=== PATIENT | female | born 1950 | race American Indian/Alaskan Native ===

== ENCOUNTER → 2018-09-27 12:08 | Outpatient (CLI) | payer MEDICARE, MEDICAID, SELFPAY ==
[2018-09-27 13:25] LABS: Alanine Aminotransferase 38 IU/L (9-52); Albumin 3.8 g/dL (3.5-5.0); Albumin Globulin Ratio 0.9 (1.0-2.8); Alkaline Phosphatase 109 U/L (38-126); Aspartate Aminotransferase 39 IU/L (14-36); BUN Creatinine Ratio 13.3 (6-22); Bilirubin Total 0.8 mg/dL (0.2-1.3); Blood Urea Nitrogen 8 mg/dL (7-17); Calcium 8.6 mg/dL (8.4-10.2); Carbon Dioxide 24 mmol/L (22-32); Chloride 107 mmol/L (98-107); Estimated Glomerular Filt Rate > 60.0 mL/min (>60); Globulin 4.3 g/dL (1.7-4.1); Glucose 121 mg/dL (80-110); HEMOLYSIS 50 (0-50); Potassium 4.5 mmol/L (3.4-5.1); Sodium 139 mmol/L (137-145); Total Protein 8.1 g/dL (6.3-8.2)
== END ==
PROVIDERS: PCP Internal Medicine; Visit Provider Internal Medicine
DX: I10 Essential (primary) hypertension (principal)
CPT/HCPCS: 36415; 80053

== ENCOUNTER → 2020-08-13 16:24 | Outpatient (CLI) | payer MEDICARE, MEDICAID, SELFPAY ==
[2020-08-13 17:35] LABS: Alanine Aminotransferase 19 IU/L (<35); Albumin 3.6 g/dL (3.5-5.0); Albumin Globulin Ratio 0.8 (1.0-2.8); Alkaline Phosphatase 112 U/L (38-126); Aspartate Aminotransferase 38 IU/L (14-36); Bilirubin Total 0.8 mg/dL (0.2-1.3); Blood Urea Nitrogen 7 mg/dL (7-17); Calcium 8.7 mg/dL (8.4-10.2); Carbon Dioxide 27 mmol/L (22-32); Chloride 110 mmol/L (98-107); Estimated Glomerular Filt Rate > 60.0 mL/min (>60); Globulin 4.7 g/dL (1.7-4.1); Glucose 100 mg/dL (80-110); HEMOLYSIS < 15 (0-50); Potassium 4.3 mmol/L (3.4-5.1); Sodium 143 mmol/L (137-145); Total Protein 8.3 g/dL (6.3-8.2)
== END ==
PROVIDERS: PCP Internal Medicine; Referring Provider Internal Medicine; Visit Provider Internal Medicine
DX: G89.4 Chronic pain syndrome (principal); M54.2 Cervicalgia; M54.9 Dorsalgia, unspecified
CPT/HCPCS: 36415; 80053

== ENCOUNTER 2022-01-07 21:38 | Emergency (ER) | payer MEDICARE, MEDICAID, SELFPAY ==
[2022-01-07] VITALS (8 sets, daily range): BP systolic 123–159; BP diastolic 56–68; PULSE 72–90; RESP 10–18; TEMP 36.6; O2SAT 96–100
--- NOTE | 2022-01-07 22:37 | DI.RAD.S_ITS ---
PROCEDURE: XR CHEST 1V INDICATIONS: fall TECHNIQUE: One view of the chest was acquired. COMPARISON: CR, CHEST 2 VIEW, 11/30/2008, 10:47. FINDINGS: Surgical changes and devices: None. Lungs and pleura: Lungs are clear. No pleural effusions or pneumothorax. Mediastinum: Mediastinal contours appear normal. Heart size is normal. Bones and chest wall: No displaced fractures identified. No suspicious bony lesions. Overlying soft tissues appear unremarkable. IMPRESSION: 1. No acute cardiopulmonary disease. Dictated by: Rajiv Luke M.D. on 01/08/2022 at 0:15 Approved by: Rajiv Luke M.D. on 01/08/2022 at 0:20
--- NOTE | 2022-01-07 22:37 | DI.RAD.S_ITS ---
PROCEDURE: XR PELVIS 1-2V INDICATIONS: fall TECHNIQUE: Single view of the pelvis acquired. COMPARISON: None. FINDINGS: Bones: No definite fractures or dislocations. There is a curvilinear lucency projecting over the right superior pubic ramus likely reflecting artifact from overlying bowel. No suspicious bony lesions. Soft tissues: Visualized bowel gas pattern is normal. No suspicious soft tissue calcifications. IMPRESSION: 1. No definite fracture or dislocation. Dictated by: Rajiv Luke M.D. on 01/08/2022 at 0:20 Approved by: Rajiv Luke M.D. on 01/08/2022 at 0:21
--- NOTE | 2022-01-07 22:37 | DI.CT.S_ITS ---
PROCEDURE: CT HEAD/BRAIN WO CON INDICATIONS: ? fall, hit head TECHNIQUE: Noncontrast 4.5 mm thick angled axial sections acquired from the foramen magnum to the vertex, with coronal and sagittal reformats. For radiation dose reduction, the following was used: automated exposure control, adjustment of mA and/or kV according to patient size. COMPARISON: None. FINDINGS: Image quality: Excellent. CSF spaces: Basal cisterns are patent. No extra-axial fluid collections. There is mild cerebral volume loss, with resultant ventricular and sulcal prominence. Brain: No intracranial hemorrhage, mass, or mass effect. There are subcortical, periventricular and deep white matter hypodensities consistent with mild chronic small vessel ischemic changes. There are calcifications within the right basal ganglia. The estes-white matter junction appears preserved. There is intracranial internal carotid artery atherosclerosis. Skull and face: Calvarium and visualized facial bones appear intact, without suspicious lesions. Sinuses: Visualized sinuses and mastoids are clear. IMPRESSION: 1. No acute intracranial abnormality. 2. Mild chronic white matter small vessel ischemic changes and cerebral volume loss. Dictated by: Rajiv Luke M.D. on 01/07/2022 at 23:26 Approved by: Rajiv Luke M.D. on 01/07/2022 at 23:27
[2022-01-07 22:49] LABS: Add Manual Diff / Slide Review NO; Basophils Absolute Auto 0 /uL (0-100); Basophils Percent Auto 0.6 % (0-2); Eosinophils Absolute Auto 100 /uL (0-450); Eosinophils Percent Auto 2.3 % (2-4); Hematocrit 22.9 % (36-46); Hemoglobin 7.4 g/dL (12.0-16.0); Lymphocytes Absolute Auto 1100 /uL (1100-4500); Lymphocytes Percent Auto 38.1 % (25-40); Mean Corpuscular HGB Conc 32.3 % (30-36); Mean Corpuscular Volume 83.6 fL (80-100); Monocytes Absolute Auto 200 /uL (0-900); Monocytes Percent Auto 6.2 % (3-14); Neutrophils Absolute Auto 1500 /uL (1500-7000); Neutrophils Percent Auto 52.8 % (50-75); Platelet Count 63 X10^3/uL (150-400); Red Blood Cell Count 2.74 X10^6/uL (4.0-5.2); Red Cell Distribution Width 16.1 % (11.6-14.8); White Blood Cell Count 2.8 X10^3/uL (4.5-11.0)
[2022-01-07 22:54] LABS: Alanine Aminotransferase 16 IU/L (<35); Albumin 3.3 g/dL (3.5-5.0); Albumin Globulin Ratio 0.7 (1.0-2.8); Alkaline Phosphatase 96 U/L (38-126); Aspartate Aminotransferase 27 IU/L (14-36); BUN Creatinine Ratio 9.7 (6-22); Bilirubin Total 0.6 mg/dL (0.2-1.3); Blood Urea Nitrogen 10 mg/dL (7-17); Calcium 7.9 mg/dL (8.4-10.2); Carbon Dioxide 22 mmol/L (22-32); Chloride 113 mmol/L (98-107); Estimated Glomerular Filt Rate 57 mL/min (>60); Globulin 4.6 g/dL (1.7-4.1); Glucose 123 mg/dL (80-110); HEMOLYSIS < 15 (0-50); Lipase 155 U/L (23-300); Potassium 4.1 mmol/L (3.4-5.1); Sodium 143 mmol/L (137-145); Total Protein 7.9 g/dL (6.3-8.2)
[2022-01-08] VITALS: BP 148/65; PULSE 72; RESP 14; O2SAT 99
[2022-01-08 00:30] VITALS: BP 147/67; PULSE 72; RESP 13; O2SAT 99
[2022-01-08 01:00] VITALS: BP 160/68; PULSE 74; RESP 10; O2SAT 99
--- NOTE | 2022-01-08 01:12 | ED_ITS ---
HPI - Fall General Chief Complaint: Fall Stated Complaint: fall Time Seen by Provider: 01/07/22 22:37 Source: patient and EMS Mode of arrival: EMS Limitations: no limitations History of Present Illness HPI Narrative: This is a 71-year-old female with history of chronic back pain, hypertension, GERD, asthma, hepatitis-C and opioid dependence. Patient comes from a [facility]. She states that she slipped out of her chair unsure if she hit her head staff thought she might have there was a red spot on her forehead. Patient complains of some right upper quadrant pain. She denies any back or neck pain. She denies any numbness, tingling weakness. No nausea or vomiting, no other GI or urinary symptoms. Related Data Previous Rx's Medication Instructions Recorded Disabled Parking Permit #1 ea 12/05/21 albuterol sulfate 90 mcg/actuation 2 puff inhalation Q4HP PRN 12/30/21 aerosol inhaler (Proventil HFA) shortness of breath or wheezing ##8.5 fluticasone propionate 110 2 puff inhalation BID #12 grams 12/30/21 mcg/actuation HFA aerosol inhaler (Flovent HFA) fluticasone propionate 50 1 spray intranasal DAILY #15.8 mL 12/30/21 mcg/actuation nasal spray,suspension (Flonase Allergy Relief) oxycodone-acetaminophen 5 mg-325 See Rx Instructions PO Q4-6H PRN 12/30/21 mg tablet pain #120 tabs salmeterol 50 mcg/dose blister 1 inh inhalation BID #50 mcg 12/30/21 powder for inhalation (Serevent Diskus) Allergies Allergy/AdvReac Type Severity Reaction Status Date / Time codeine [CODEINE] Allergy Mild HIVES Verified 01/08/22 11:39 hydrocodone [HYDROCODONE] Allergy Mild HIVES/VICOD Verified 01/08/22 11:39 IN morphine [MORPHINE] Allergy Mild CRAMPS Verified 01/08/22 11:39 NSAIDS (Non-Steroidal Allergy Mild HIVES Verified 01/08/22 11:39 Anti-Inflamma [NSAIDS (NON-STEROIDAL ANTI-INFLAMMA] Review of Systems Review of Systems ROS Unobtainable: All systems reviewed & are unremarkable except as noted in HPI and below Patient History Medical History (Updated 01/08/22 @ 11:58 by Sammy Jeronimo MD) Back pain (11/14/10) Chronic pain syndrome Essential hypertension (11/14/10) Gastroesophageal reflux disease without esophagitis (11/14/10) HCV antibody positive (11/14/10) Mild intermittent asthma without complication (01/26/14) Neck pain (12/12/10) Opioid dependence Pancytopenia Surgical History Anesthesia History of knee replacement History of spinal fusion Status post cholecystectomy Social History marital status: Smoking Status: Current some day smoker Smokeless tobacco user: other (Cigarettes) quit status: has quit before second hand exposure: Yes alcohol intake: never substance use type: does not use Smoking Status: Current some day smoker Substance Use Type: does not use Exam Narrative Exam Narrative: GEN: Patient appears in mild distress. HEAD: No evidence of trauma, no raccoon/Womack sign. NECK: Nontender, painless range of motion, trachea midline Negative Nexus criteria, there is no midline line tenderness, distracting injury, altered mental status, neuro deficit, recent EtOH. EYES: PERRLA, EOMI ENT: External inspection normal, trachea is midline, TM's are normal no hemotypanum, Nares are clear, no septal hematoma, no dental or oral injury, airway is normal and with normal occlusion, No bony tenderness RESP: Chest is nontender and has symmetric movement, no ecchymosis, breath sounds are normal no crackles, wheezes or rales CVS: Heart sounds are normal, no murmur noted, No JVD. ABG/GI: Patient is tender particularly right upper quadrant, soft, normal bowel sounds, no distention, no organomegaly, pelvic rock is negative NEURO: Oriented AOx3, neuro is grossly intact, sensation and motor is normal all 4 extremities moving, cranial nerves II through XII are intact, GCS is 14 PSYCH: Normal mood and affect SKIN: Intact, warm and dry, no crepitus and without decubitus BACK: No CVA tenderness, no vertebral tenderness, no step-off's, no crepitus EXT: Atraumatic, hips are nontender, no pedal edema, normal color and temperature, normal range of motion of extremities with normal tendon exam, 2+ pulses in all four extremities SKIN: Patient does have some bruising on upper and lower extremities. Initial Vital Signs Initial Vital Signs: Vital Signs Temperature 97.9 F 01/07/22 21:40 Pulse Rate 88 01/07/22 21:40 Respiratory Rate 18 01/07/22 21:40 Blood Pressure 123/56 L 01/07/22 21:40 Pulse Oximetry 99 01/07/22 21:40 Oxygen Delivery Method 01/07/22 21:40 Scores GCS Reyna coma scale eye opening: Spontaneous Reyna coma scale verbal response: Confused Reyna coma scale motor response: Obey commands Reyna coma scale total score: 14 Course Orders Ordered: Discontinued Medications Oxycodone/Acetaminophen (Oxycodone/Acetaminophen 5/325 Tablet) 1 tab PO NOW ONE Stop: 01/08/22 01:17 Last Admin: 01/08/22 02:02 Dose: 1 tab Documented By: DEREK Vital Signs Vital signs: Vital Signs - 8 hr 01/07/22 21:40 01/07/22 21:42 01/07/22 21:43 Temperature 97.9 F Pulse Rate 88 90 Respiratory Rate 18 Blood Pressure 123/56 L 123/56 L Pulse Oximetry 99 96 Oxygen Delivery Method Room Air 01/07/22 22:00 01/07/22 22:30 01/07/22 23:04 Temperature Pulse Rate 81 77 73 Respiratory Rate 12 10 L 13 Blood Pressure Pulse Oximetry 96 98 100 Oxygen Delivery Method 01/07/22 23:05 01/07/22 23:05 01/07/22 23:30 Temperature Pulse Rate 74 Respiratory Rate 11 L Blood Pressure 159/68 H 142/64 H Pulse Oximetry 98 Oxygen Delivery Method 01/07/22 23:30 01/08/22 00:00 01/08/22 00:00 Temperature Pulse Rate 72 72 Respiratory Rate 13 14 Blood Pressure 148/65 H Pulse Oximetry 99 99 Oxygen Delivery Method 01/08/22 00:30 01/08/22 00:30 01/08/22 01:00 Temperature Pulse Rate 72 Respiratory Rate 13 Blood Pressure 147/67 H 160/68 H Pulse Oximetry 99 Oxygen Delivery Method 01/08/22 01:00 Temperature Pulse Rate 74 Respiratory Rate 10 L Blood Pressure Pulse Oximetry 99 Oxygen Delivery Method MDM - Fall Lab Data Result diagrams: 01/07/22 22:07 01/07/22 22:07 Labs: Lab Results 01/07/22 01/07/22 Range/Units 22:07 22:07 WBC 2.8 L (4.5-11.0) X10^3/uL RBC 2.74 L (4.0-5.2) X10^6/uL Hgb 7.4 L (12.0-16.0) g/dL Hct 22.9 L (36-46) % MCV 83.6 (80-100) fL MCH 27.0 (26-34) PG MCHC 32.3 (30-36) % RDW 16.1 H (11.6-14.8) % Plt Count 63 L (150-400) X10^3/uL Neut % (Auto) 52.8 (50-75) % Lymph % (Auto) 38.1 (25-40) % Rooks % (Auto) 6.2 (3-14) % Eos % (Auto) 2.3 (2-4) % Baso % (Auto) 0.6 (0-2) % Neut # (Auto) 1500 (0064-6779) /uL Lymph # (Auto) 1100 (0667-0426) /uL Rooks # (Auto) 200 (0-900) /uL Eos # (Auto) 100 (0-450) /uL Baso # (Auto) 0 (0-100) /uL Sodium 143 (137-145) mmol/L Potassium 4.1 (3.4-5.1) mmol/L Chloride 113 H (98-107) mmol/L Carbon Dioxide 22 (22-32) mmol/L BUN 10 (7-17) mg/dL Creatinine 1.03 (0.52-1.04) mg/dL Estimated GFR 57 L (>60) mL/min BUN/Creatinine Ratio 9.7 (6-22) Glucose 123 H (80-110) mg/dL Calcium 7.9 L (8.4-10.2) mg/dL Total Bilirubin 0.6 (0.2-1.3) mg/dL AST 27 (14-36) IU/L ALT 16 (<35) IU/L Alkaline Phosphatase 96 (38-126) U/L Total Protein 7.9 (6.3-8.2) g/dL Albumin 3.3 L (3.5-5.0) g/dL Globulin 4.6 H (1.7-4.1) g/dL Albumin/Globulin Ratio 0.7 L (1.0-2.8) Lipase 155 (23-300) U/L Imaging Data CT scan - head: Radiologist's Impression: [address] [id number] Scan ReportSigned Patient: Ivett JoynMR#: [id number]: 9Acct:[id number]/Sex: 71 / FDate of Service: 01/07/22Loc: EDAccession Number: [id number]? ? Procedure: CT head/brain wo con Ordering Provider: Lila Anderson D.O. PROCEDURE:? CT HEAD/BRAIN WO CON ? INDICATIONS:? ? fall, hit head ? TECHNIQUE:? Noncontrast 4.5 mm thick angled axial sections acquired from the foramen magnum to the vertex, with coronal and sagittal reformats.? For radiation dose reduction, the following was used:? automated exposure control, adjustment of mA and/or kV according to patient size.? ? COMPARISON:? None. ? FINDINGS:? Image quality:? Excellent.? ? CSF spaces:? Basal cisterns are patent.? No extra-axial fluid collections.? There is mild cerebral volume loss, with resultant ventricular and sulcal prominence.? ? Brain:? No intracranial hemorrhage, mass, or mass effect.? There are subcortical, periventricular and deep white matter hypodensities consistent with mild chronic small vessel ischemic changes.? There are calcifications within the right basal ganglia.? The estes-white matter junction appears preserved.? There is intracranial internal carotid artery atherosclerosis.? ? Skull and face:? Calvarium and visualized facial bones appear intact, without suspicious lesions.? ? Sinuses:? Visualized sinuses and mastoids are clear.? ? IMPRESSION:? ? 1. No acute intracranial abnormality. ? 2. Mild chronic white matter small vessel ischemic changes and cerebral volume loss.? ? ? Dictated by: Rajiv Luke M.D. on 01/07/2022 at 23:26? ?? Approved by: Rajiv Luke M.D. on 01/07/2022 at 23:27??? Chest x-ray: Radiologist's Impression: Close Pelvis X-Ray (Signed) Rajiv Luke - 01/07/[address] (Signed) Rajiv Luke - 01/07/22 Chest X-Ray (Signed) Rajiv Luke - 01/07/22 Launch?Image [address] [address] XRay Report Signed Patient: Linnea Joy MR#: [id number] : 1950 Acct:[id number] Age/Sex: 71 / F Date of Service: 01/07/22 Loc: ED Accession Number: [id number] ?? Procedure: XR chest 1V Ordering Provider: Lila Anderson D.O. PROCEDURE:? XR CHEST 1V ? INDICATIONS:? fall ? TECHNIQUE:? One view of the chest was acquired.? ? COMPARISON:? CR, CHEST 2 VIEW, 11/30/2008, 10:47. ? FINDINGS:? ? Surgical changes and devices:? None.? ? Lungs and pleura:? Lungs are clear.? No pleural effusions or pneumothorax.? ? Mediastinum:? Mediastinal contours appear normal.? Heart size is normal.? ? Bones and chest wall:? No displaced fractures identified.? No suspicious bony lesions.? Overlying soft tissues appear unremarkable.? ? IMPRESSION:? ? 1.? No acute cardiopulmonary disease. ? ? ? Dictated by: Rajiv Luke M.D. on 01/08/2022 at 0:15 ? ? Approved by: Rajiv Luke M.D. on 01/08/2022 at 0:20? pelvic xray: Radiologist's Impression: [address] [address] XRay Report Signed Patient: Linnea Joy MR#: [id number] : 1950 Acct:[id number] Age/Sex: 71 / F Date of Service: 01/07/22 Loc: ED Accession Number: [id number] ?? Procedure: XR pelvis 1-2V Ordering Provider: Lila Anderson D.O. PROCEDURE:? XR PELVIS 1-2V ? INDICATIONS:? fall ? TECHNIQUE:? Single view of the pelvis acquired.? ? COMPARISON:? None. ? FINDINGS:? ? Bones:? No definite fractures or dislocations.? There is a curvilinear lucency projecting over the right superior pubic ramus likely reflecting artifact from overlying bowel.? No suspicious bony lesions.? ? Soft tissues:? Visualized bowel gas pattern is normal.? No suspicious soft tissue calcifications.? ? IMPRESSION:? ? 1. No definite fracture or dislocation. ? ? Dictated by: Rajiv Luke M.D. on 01/08/2022 at 0:20 ? ? Approved by: Rajiv Luke M.D. on 01/08/2022 at 0:21?? CT scan - abdomen/pelvis: Radiologist's Impression: Suad Sharma??51??F??08/02/1970 ? Allergy/Adv: codeine Close Lumbar Spine X-Ray (Signed) Marly,Rajiv - 01/08/[address] (Signed) Marly,Rajiv - 01/08/22 Knee X-Ray (Signed) Marly,Rajiv - 01/07/22 Ankle X-Ray (Signed) Marly,Rajiv - 01/07/22 Launch?[place] [address] XRay Report Signed Patient: Suad Sharma MR#: [id number] : 08/02/1970 Acct:[id number] Age/Sex: 51 / F Date of Service: 01/07/22 Loc: ED Accession Number: [id number] ?? Procedure: XR ankle LT min 3V Ordering Provider: Lila Anderson D.O. PROCEDURE:? XR ANKLE LT MIN 3V ? INDICATIONS:? fall right ankle pain ? TECHNIQUE:? 3 views of the ankle were acquired.? ? COMPARISON:? None. ? FINDINGS:? ? Bones:? No fractures or dislocations.? Ankle mortise is normally aligned.? No s uspicious bony lesions.? ? Soft tissues:? No tibiotalar joint effusion.? Achilles tendon appears normal.? ? ? IMPRESSION:? ? 1. No fracture or dislocation. ? Dictated by: Rajiv Luke M.D. on 01/08/2022 at 0:44 ? ? Approved by: Rajiv Luke M.D. on 01/08/2022 at 0:57? ECG Data Attestation: I personally reviewed and interpreted this ECG as follows: Interpretation: Sinus rhythm rate 85 NE 184 QRS 84 and QTC 447. No acute ST changes appreciated. MDM Narrative Medical decision making narrative: This is a 71-year-old female with unwitnessed ground level fall, head CT is negative, patient's chest and pelvis are negative. On exam patient does have some right upper quadrant tenderness and is noted to be pancytopenic. She is not tachycardic or hypotensive but do not have any priors for comparison for her hemoglobin or other labs so CT abdomen pelvis was obtained as she is higher risk for bleeding with her thrombocytopenia. Patient states that she would not want a blood transfusion for latter-day purposes even if it meant she would . Patient states she has an appointment today with Dr. Jeronimo her primary care provider she would like to return to [facility] assisted [facility]. Patient I discussed observation she would rather return back to her facility. I did speak with Dr. Morocho who is on-call for Dr. Jeronimo and he will let him regarding today's findings. Patient boarding overnight in the ER while awaiting ride expected to come at 6:00 a.m. Discharge Plan Departure Patient Disposition: Home Clinical Impression: Anemia, Abdominal pain Fall Qualifiers: Encounter type: initial encounter Qualified Code(s): W19.XXXA - Unspecified fall, initial encounter Instructions: DI for Pancytopenia Activity Restrictions/Additional Instructions: Your labs show pancytopenia or low white blood cell count, hemoglobin and elkin telets. As discussed you would not wish for a blood transfusion if you needed so this is deferred. I spoke with your on-call providers, please follow-up with Dr. Jeronimo at your appointment later today to review these. You may take your home medications including her home pain medication as prescribed. Please return for new or worsening symptoms, severe headaches, passing out, new chest pain, shortness of breath, new or worsening abdominal back or flank pain or other new or concerning changes. Prescriptions: No Action (DME) Disabled Parking Permit See Rx Instructions .Route .MEDSUPPLY Qty: 1 0RF Rx Instructions: Patient unable to walk 200 feet without stopping to rest and must walk with assistance. oxycodone-acetaminophen 5-325 mg tablet See Rx Instructions PO Q4-6H PRN (Reason: pain) Qty: 120 0RF Rx Instructions: 1-2 TABS PO Q4-6H PRN; albuterol sulfate [Proventil HFA] 90 mcg/actuation HFA aerosol inhaler 2 puff inhalation Q4HP PRN (Reason: shortness of breath or wheezing) Qty: 8.5 11RF fluticasone propionate [Flonase Allergy Relief] 50 mcg/actuation spray,suspension 1 spray intranasal DAILY Qty: 15.8 3RF Rx Instructions: administer into each nostril Flovent HFA 110 mcg/actuation HFA aerosol inhaler 2 puff inhalation BID Qty: 12 3RF Serevent Diskus 50 mcg/dose blister with device 1 inh inhalation BID Qty: 50 11RF Referrals: Sammy Jeronimo MD [Primary Care Provider] - Visit Report Forms: Patient Portal/API
--- NOTE | 2022-01-08 01:16 | DI.CT.S_ITS ---
PROCEDURE: CT ABDOMEN PELVIS W CON INDICATIONS: abd pain, fall, low platelets TECHNIQUE: After the administration of IV contrast, axial sections were acquired from the lung bases to the pubic symphysis. Coronal and sagittal reformats were performed. For radiation dose reduction, the following was used: automated exposure control, adjustment of mA and/or kV according to patient size. COMPARISON: None. FINDINGS: Image quality: Excellent. Lung bases: There is mild dependent atelectasis and scarring in the lung bases. Heart: Heart is normal in size. There is a small hiatal hernia. ABDOMEN: Liver: The liver is nodular in contour suggestive of cirrhosis. No evidence of hepatic lacerations or perihepatic hematomas. There is a small cyst in the right hepatic lobe anteriorly. Gallbladder: Surgically absent. Biliary ducts: There is biliary ductal dilatation, with the extrahepatic ducts measuring up to approximately 1.9 cm extending to the ampulla. No discrete calcified obstructing stone or mass visualized. Pancreas: There is mild pancreatic duct dilatation extending to the ampulla. Pancreatic duct measures up to 0.7 cm in the uncinate process. No discrete pancreatic mass identified. Spleen: Normal in size. Adrenal Glands: No adrenal nodules. Kidneys and Ureters: No hydronephrosis. There is a left renal cyst anteriorly. Stomach and Bowel: Stomach, small bowel loops, and colon are normal in caliber and wall thickness. Peritoneum: There is a small amount of nonspecific free fluid in the pelvis. No free air. Ventral Wall: No hernia. Abdominal Nodes: No retroperitoneal or mesenteric adenopathy by size criteria. Vessels: Aorta and inferior vena cava are normal in size. PELVIS: Pelvic Organs: There is a simple appearing right ovarian cyst measuring up to 2.7 cm.. Bladder: Unremarkable. Pelvic Nodes: No enlarged lymph nodes. Miscellaneous: No inguinal hernias are seen. Bones: No acute fractures identified. There is a mild leftward curvature of the lumbar spine. Visualized osseous structures demonstrate no suspicious focal lesions. IMPRESSION: 1. No intra-abdominal hematoma collections identified. 2. Small amount of free fluid in the pelvis is nonspecific and may be reactive. No evidence of hemoperitoneum. 3. Marked biliary ductal dilatation as well as mild pancreatic duct dilatation. No calcified common duct stone or discrete mass identified. The differential includes ampullary stenosis or sequelae of a nonvisualized small mass lesion. Recommend correlation clinically including with laboratory values for possible biliary obstruction. Dictated by: Rajiv Luke M.D. on 01/08/2022 at 1:50 Approved by: Rajiv Luke M.D. on 01/08/2022 at 1:56
[2022-01-08] MEDS: OXYCODONE/ACETAMINOPHEN 5/325 TABLET 1 TAB PO (02:02)
[2022-01-08 07:17] VITALS: PULSE 83; O2SAT 99
[2022-01-08 07:18] VITALS: BP 126/59; PULSE 80; O2SAT 99
== END 2022-01-08 08:04 | disposition home or self-care (01) ==
PROVIDERS: Emergency Provider Emergency Medicine; PCP Internal Medicine
DX: D64.9 Anemia, unspecified (principal); R10.11 Right upper quadrant pain; S09.90XA Unspecified injury of head, initial encounter; W19.XXXA Unspecified fall, initial encounter
CPT/HCPCS: 36415; 70450; 71045; 72170; 74177; 80053; 83690; 85025; 93005; 99284; Q9967

== ENCOUNTER 2022-01-16 16:55 | Emergency (ER) | payer MEDICARE, MEDICAID, SELFPAY ==
[2022-01-16 17:05] VITALS: BP 156/68; PULSE 80; RESP 18; TEMP 36.8; O2SAT 100; BMI 23.8
[2022-01-16 17:49] LABS: Add Manual Diff / Slide Review NO; Basophils Absolute Auto 0 /uL (0-100); Basophils Percent Auto 0.9 % (0-2); Eosinophils Absolute Auto 0 /uL (0-450); Eosinophils Percent Auto 1.4 % (2-4); Hematocrit 23.3 % (36-46); Hemoglobin 7.6 g/dL (12.0-16.0); Lymphocytes Absolute Auto 900 /uL (1100-4500); Lymphocytes Percent Auto 34.7 % (25-40); Mean Corpuscular HGB Conc 32.5 % (30-36); Mean Corpuscular Volume 79.9 fL (80-100); Monocytes Absolute Auto 200 /uL (0-900); Neutrophils Absolute Auto 1500 /uL (1500-7000); Platelet Count 86 X10^3/uL (150-400); Red Blood Cell Count 2.91 X10^6/uL (4.0-5.2); Red Cell Distribution Width 15.7 % (11.6-14.8); White Blood Cell Count 2.7 X10^3/uL (4.5-11.0)
[2022-01-16 18:07] LABS: Alanine Aminotransferase 15 IU/L (<35); Albumin 3.5 g/dL (3.5-5.0); Albumin Globulin Ratio 0.7 (1.0-2.8); Alkaline Phosphatase 104 U/L (38-126); Aspartate Aminotransferase 25 IU/L (14-36); BUN Creatinine Ratio 13.4 (6-22); Bilirubin Total 0.5 mg/dL (0.2-1.3); Blood Urea Nitrogen 9 mg/dL (7-17); Calcium 8.1 mg/dL (8.4-10.2); Carbon Dioxide 21 mmol/L (22-32); Chloride 114 mmol/L (98-107); Estimated Glomerular Filt Rate > 60 mL/min (>60); Globulin 4.7 g/dL (1.7-4.1); Glucose 109 mg/dL (80-110); HEMOLYSIS < 15 (0-50); Lipase 397 U/L (23-300); Sodium 142 mmol/L (137-145); Total Protein 8.2 g/dL (6.3-8.2)
--- NOTE | 2022-01-16 18:08 | PC.NURSE ---
Notified patient that narcotic prescription was being delivered to her care facility tonight and patient asked if she could leave. Notified provider of conversation and returned to patient's room and found her attempting to leave with PIV in place. Provider aware that patient wants to leave without being seen. Patient called for taxi and departed under own power.
== END 2022-01-16 18:10 | disposition left against medical advice (07) ==
PROVIDERS: Emergency Medicine; Emergency Provider Emergency Medicine; PCP Internal Medicine
DX: R10.9 Unspecified abdominal pain (principal); R11.0 Nausea
CPT/HCPCS: 36415; 80053; 83690; 85025; 99283

== ENCOUNTER → 2022-06-22 16:19 | Outpatient (CLI) | payer MEDICARE, MEDICAID, SELFPAY ==
--- NOTE | 2022-06-22 16:23 | DI.RAD.S_ITS ---
PROCEDURE: XR HIP W PEL IF DONE RT 2V INDICATIONS: pain, multiple falls TECHNIQUE: AP pelvis with lateral view(s) of the right approved hip(s). COMPARISON: None. FINDINGS: Bones: No fractures or dislocations. Pelvic ring appears intact. No suspicious bony lesions. Soft tissues: The visualized bowel gas pattern is normal. No suspicious soft tissue calcifications. IMPRESSION: No acute abnormality of the pelvis or right hip. Dictated by: Caleb Lao M.D. on 06/22/2022 at 17:00 Approved by: Caleb Lao M.D. on 06/22/2022 at 17:01
== END ==
PROVIDERS: PCP Internal Medicine; Referring Provider Internal Medicine; Visit Provider Internal Medicine
DX: M25.551 Pain in right hip (principal)
CPT/HCPCS: 73502

== ENCOUNTER → 2022-08-28 10:48 | Outpatient (CLI) | payer MEDICARE, MEDICAID, SELFPAY ==
[2022-08-28 12:13] LABS: Add Manual Diff / Slide Review NO; Basophils Absolute Auto 0 /uL (0-100); Basophils Percent Auto 0.5 % (0-2); Eosinophils Absolute Auto 100 /uL (0-450); Eosinophils Percent Auto 2.2 % (2-4); Hematocrit 35.7 % (36-46); Hemoglobin 12.3 g/dL (12.0-16.0); Lymphocytes Absolute Auto 1000 /uL (1100-4500); Lymphocytes Percent Auto 31.6 % (25-40); Mean Corpuscular HGB Conc 34.6 % (30-36); Mean Corpuscular Hemoglobin 32.5 PG (26-34); Mean Corpuscular Volume 93.8 fL (80-100); Monocytes Absolute Auto 200 /uL (0-900); Monocytes Percent Auto 6.6 % (3-14); Neutrophils Absolute Auto 1800 /uL (1500-7000); Neutrophils Percent Auto 59.1 % (50-75); Platelet Count 93 X10^3/uL (150-400); Red Cell Distribution Width 15.4 % (11.6-14.8); White Blood Cell Count 3.1 X10^3/uL (4.5-11.0)
[2022-08-28 12:38] LABS: HEMOLYSIS < 15 (0-50); Iron 107 ug/dL (37-170)
[2022-08-28 12:40] LABS: Alanine Aminotransferase 54 IU/L (<35); Albumin 3.7 g/dL (3.5-5.0); Albumin Globulin Ratio 0.9 (1.0-2.8); Alkaline Phosphatase 116 U/L (38-126); Aspartate Aminotransferase 61 IU/L (14-36); BUN Creatinine Ratio 14.3 (6-22); Blood Urea Nitrogen 12 mg/dL (7-17); Calcium 8.5 mg/dL (8.4-10.2); Carbon Dioxide 23 mmol/L (22-32); Chloride 114 mmol/L (98-107); Estimated Glomerular Filt Rate > 60 mL/min (>60); Globulin 4.3 g/dL (1.7-4.1); Glucose 93 mg/dL (80-110); HEMOLYSIS < 15 (0-50); Potassium 4.1 mmol/L (3.4-5.1); Sodium 144 mmol/L (137-145)
[2022-08-28 12:49] LABS: Percent Iron Saturation 27 % (15-50); Total Iron Binding Capacity 399 ug/dL (265-497); Transferrin 281 mg/dL (206-381)
== END ==
PROVIDERS: PCP Internal Medicine; Referring Provider Internal Medicine; Visit Provider Internal Medicine
DX: D50.9 Iron deficiency anemia, unspecified (principal); D61.818 Other pancytopenia; I10 Essential (primary) hypertension
CPT/HCPCS: 36415; 80053; 83540; 83550; 85025

== ENCOUNTER → 2022-11-12 11:07 | Outpatient (CLI) | payer MEDICARE, MEDICAID, SELFPAY ==
[2022-11-12 13:53] LABS: Alanine Aminotransferase 94 IU/L (<35); Albumin 4.1 g/dL (3.5-5.0); Alkaline Phosphatase 144 U/L (38-126); Aspartate Aminotransferase 136 IU/L (14-36); BUN Creatinine Ratio 24.2 (6-22); Bilirubin Total 1.1 mg/dL (0.2-1.3); Blood Urea Nitrogen 15 mg/dL (7-17); Calcium 8.6 mg/dL (8.4-10.2); Carbon Dioxide 22 mmol/L (22-32); Chloride 112 mmol/L (98-107); Estimated Glomerular Filt Rate > 60 mL/min (>60); Globulin 4.2 g/dL (1.7-4.1); Glucose 85 mg/dL (80-110); HEMOLYSIS < 15 (0-50); Potassium 4.3 mmol/L (3.4-5.1); Sodium 142 mmol/L (137-145); Total Protein 8.3 g/dL (6.3-8.2)
== END ==
PROVIDERS: PCP Internal Medicine; Referring Provider Internal Medicine; Visit Provider Internal Medicine
DX: I10 Essential (primary) hypertension (principal)
CPT/HCPCS: 36415; 80053